=== PATIENT | female | born 1970 | race Caucasian/White ===

== ENCOUNTER 2022-07-07 01:30 | Day surgery (SDC) | payer OTHER, SELFPAY ==
[2022-06-30 11:50] VITALS: BMI 21.4
--- NOTE | 2022-06-30 11:55 | PC.NURSE ---
Report to the Outpatient Waiting Room, entrance under the green pavilion located off [facility], at time 1230 on date 07/07/22. Planned Procedure Time: 1430. Time changes happen often and if your time is changed the preop area will call you the afternoon before. - You and your visitor will be asked to self-screen and do not enter if you have any COVID symptoms. - A mask is optional within the hospital at this time. Patients may have clear liquids (water, carbonated beverages, clear teas, apple juice) until 3 hours prior to surgery with a maximum of 20 ounces. - No food from midnight until time of surgery Take the following medications with a SIP of water the morning of surgery: BUPROPION DO NOT STOP ANY OF YOUR OTHER PRESCRIPTION MEDICATIONS PRIOR TO SURGERY EXCEPT THE FOLLOWING Medications to discontinue per physician: N/A Date to take last dose: N/A Please no make-up, nail azeri, hairspray, perfume, deodorant, or body powder the day of surgery. No jewelry (including any body piercings) or valuables the day of surgery, leave them at home. Please take a shower or bath the night before, or the morning of, surgery with an antibacterial soap. Wear comfortable, loose fitting clothing. - Jewelry must be removed prior to entering the operating room. Rings and piercings that are not removed may be cut off. - The hospital will not accept responsibility for valuables. - Please leave all valuables, including medications, at home the day of surgery. If you are going home after surgery, a licensed show horse driver must drive you home. - NO public transportation without another adult if you receive anesthesia. - We recommend that an adult stay with you for 24 hours following discharge. - We also recommend that you do not drive, make important decision, drink alcoholic beverages, or take any drugs that were not prescribed by your health care provider for at least 24 hours after your discharge time. Follow any additional instructions given to you from your surgeon. If you or anyone in your household have experienced Covid symptoms in the past week, please notify your surgeon or the nurse liaison at the phone number below for possible testing. Telephone instructions given to PT - PAULA YOUNG and asked if any additional questions and then verbalized understanding. Patient advised to call surgeon office or pre surgery nurse liaison [phone] if any additional questions.
--- NOTE | 2022-07-07 07:49 | WPDHPUPDATE1 ---
History and Physical Update Update Date/Time: 07/07/22 07:49 History and Physical has been reviewed, including an updated exam of the patient. There are NO changes in the patient's condition. Risks, benefits, and alternatives have been discussed and questions answered. Patient agrees to proceed with procedure.
--- NOTE | 2022-07-07 07:50 | PM.HPGS ---
History of Present Illness History of Present Illness Consent: Risks, benefits, and alternatives have been discussed and questions answered. Patient agrees to proceed with procedure. Chief complaint: menorragia Narrative: Aria Dial is a 51 year old female with irregular heavy cycles. It was recommended to proceed with D&C hysteroscopy. Risks of infection, bleeding, perforation, and possible pathology were reviewed. Patient voices understanding and agrees to proceed. Review of Systems Review of Systems: not repeated day of surgery; patient states no changes in status PMFSH Past Medical History Medical History (Updated 07/07/22 @ 07:53 by Sandy Robbins MD) (normal spontaneous vaginal delivery) x2 Social anxiety disorder Surgical History Surgical History (Updated 07/07/22 @ 07:52 by Sandy Robbins MD) History of laparotomy 1992 right oophorectomy secondary to dermoid History of lumpectomy of left breast intraductal hyperplasia Social History Social History Smoking status: Never smoker Alcohol intake: never Substance use: never Substance use type: does not use Living arrangements: with family Spiritual care concerns: No Meds Home Medications and Allergies Home Medications Medication Instructions Recorded Confirmed Type bupropion HCl 100 mg tablet 100 mg PO DAILY 06/30/22 06/30/22 History escitalopram oxalate 5 mg tablet 5 mg PO HS 06/30/22 06/30/22 History Allergies Allergy/AdvReac Type Severity Reaction Status Date / Time Sulfa (Sulfonamide Allergy Mild Rash Unverified 06/30/22 11:49 Antibiotics) codeine Allergy Other Verified 06/30/22 11:49 Exam Const: General: healthy appearing and alert Orientation/consciousness: patient oriented x3 Resp: Effort & Inspection: normal respiratory effort GI: GI Palp: Yes Soft to palpation, No Tenderness to palpation present (GI) and No Palpable mass present : External Female Exam: normal external appearance Speculum Exam - Vagina: normal appearance of the vagina and normal vaginal discharge Speculum Exam - Cervix: normal appearance of the cervix Bimanual exam- vagina & uterus: uterine size normal and consistency normal Bimanual Exam- Adnexa, other: normal adnexae and No adnexal tenderness Neuro: General: patient oriented x3 Assessment and Plan Assessment and plan (1) Menorrhagia: Code(s): N92.0 - Excessive and frequent menstruation with regular cycle Status: Acute Assessment and Plan: plan to proceed with D&C hysteroscopy
[2022-07-07] MEDS: ACETAMINOPHEN 500 MG TABLET 1000 MG PO (09:05)
[2022-07-07] MEDS: LACTATED RINGERS 1,000 ML 30 ML IV CONT (09:29)
--- NOTE | 2022-07-07 09:33 | WPDANESEPPF ---
Anes - Initial Pre Proc Eval Procedure: Operation Date: 07/07/22 10:45 Proposed Procedures p Hysteroscopy Dilation and Curettage - Sandy Robbins MD Date/Time: 07/07/22 09:33 Surgeon: Sandy Robbins MD Pre Op Diagnosis: menorragia Patient Data Age: 51 Gender: F Height: 1.63 m Weight: 56.7 kg Allergies Allergy/AdvReac Type Severity Reaction Status Date / Time Sulfa (Sulfonamide Allergy Mild Rash Unverified 06/30/22 11:49 Antibiotics) codeine Allergy Other Verified 06/30/22 11:49 Home Medications Medication Instructions Recorded Confirmed Type bupropion HCl 100 mg tablet 100 mg PO DAILY 06/30/22 06/30/22 History escitalopram oxalate 5 mg tablet 5 mg PO HS 06/30/22 06/30/22 History Patient hx anesthesia problems: none Family hx anesthesia problems: none Results Review: All pre-operative results and documents have been reviewed as part of the pre-operative evaluation. [facility] Past Medical History Medical History (Updated 07/07/22 @ 07:53 by Sandy Robbins MD) (normal spontaneous vaginal delivery) x2 Social anxiety disorder Surgical History Surgical History (Updated 07/07/22 @ 07:52 by Sandy Robbins MD) History of laparotomy 1992 right oophorectomy secondary to dermoid History of lumpectomy of left breast intraductal hyperplasia Social History Social History Smoking status: Never smoker Alcohol intake: never Substance use: never Substance use type: does not use Living arrangements: with family Spiritual care concerns: No Anes - Eval Final PreProcedure Day of Procedure 07/07/22 09:33 Patient weight: normal Heart: regular rate and rhythm Lungs: clear to auscultation Airway: Mallampati scale class II Neurological: alert and oriented Last oral intake: >/= 8 hours ASA classification: II Emergent: no Anesthetic plan: proceed Anesthesia type and monitoring: general GIVS and standard monitoring Results Review: All pre-operative results and documents have been reviewed as part of the pre-operative evaluation. Informed Consent: The patient's anesthetic plan and its attendant risks and benefits were discussed with the patient/family/POA. Questions were solicited and answers provided to the satisfaction of the patient/family/POA.
[2022-07-07 09:39] VITALS: BP 142/79; PULSE 71; RESP 16; TEMP 36.1; O2SAT 100
[2022-07-07] MEDS: LIDOCAINE HCL 1% LOCAL INJ 20 ML VIAL 10 ML INFILTRATE (11:09)
[2022-07-07] MEDS: KETOROLAC 15 MG/ML VIAL (*BKC) IV PUSH (11:14)
--- NOTE | 2022-07-07 11:17 | W.PM.PROC2 ---
Procedure Note - Detailed Date of Procedure 07/07/22 Pre-op Diagnosis menorragia Post-op Diagnosis Same Procedure Performed D&C hysteroscopy Surgeon Sandy Robbins MD Anesthesia MAC and Local Findings uterus sounds to 10cm and appears grossly shaggy Description of Procedure The patient was taken to the operating room and placed under anesthesia in the dorsal lithotomy position. The bivalve was placed in the vagina and the cervix grasped on the anterior lip a tenaculum. The cervix is injected in each quadrant with 1% lidocaine. The uterus is sounded to 10cm and the endocervical canal was noted to be up into the patient's right. The cervix was dilated to a 5 Hegar and the hysteroscope was placed. No abnormalities are noted therefore the hysteroscope was removed. The sharp curette is used to curette the endometrium until a good uterine cry was noted in all areas. Significant amount of materials obtained consistent with a shaggy appearance of the endometrium. All instruments were then removed. The sponge, needle, and instrument counts are correct per the OR staff. Patient is awakened from anesthesia and taken to recovery in stable condition. Estimated Blood Loss 5 Drains No Packing No Pathology Yes ( Endometrial curettings) Complications No immediate complications Condition Stable Disposition PACU
[2022-07-07 11:19] VITALS: BP 102/69; PULSE 79; RESP 10; O2SAT 97
[2022-07-07 11:30] VITALS: BP 94/64; PULSE 67; RESP 16; O2SAT 98
[2022-07-07 12:00] VITALS: BP 124/73; PULSE 74; RESP 16
== END 2022-07-07 12:33 | disposition home or self-care (01) ==
PROVIDERS: PCP Family Medicine; Visit Provider Obstetrics & Gynecology Gynecology
PROC: 0U5B8ZZ Destruction of Endometrium, Via Natural or Artificial Opening Endoscopic (ICD-10-PCS; CPT 58563; principal; 2022-07-07 10:45)
DX: N92.0 Excessive and frequent menstruation with regular cycle (principal); N84.0 Polyp of corpus uteri; F41.8 Other specified anxiety disorders
CPT/HCPCS: 58558; 88305; A9270; J1885; J2250; J2405; J2704; J3010; J7120